=== PATIENT | male | born 1990 | race Caucasian/White ===

== ENCOUNTER 2017-12-26 19:20 | Emergency (ER) | payer SELFPAY | END 2017-12-26 20:32 | disposition home or self-care (01) | LOC: EDH 19:20 | DX: S67.21XA Crushing injury of right hand, initial encounter (principal); W23.0XXA Caught, crushed, jammed, or pinched between moving objects, initial encounter; Y93.89 Activity, other specified; Y92.89 Other specified places as the place of occurrence of the external cause; Y99.8 Other external cause status | CPT/HCPCS: 73130 ==

== ENCOUNTER 2018-02-15 15:36 | Emergency (ER) | payer SELFPAY ==
[2018-02-15] MEDS ORDERED: ACETAMINOPHEN-CODEINE 300/30MG TAB ONE (16:32)
== END 2018-02-15 16:45 | disposition home or self-care (01) ==
LOC: EDH 15:36
DX: S40.011A Contusion of right shoulder, initial encounter (principal); W01.0XXA Fall on same level from slipping, tripping and stumbling without subsequent striking against object, initial encounter; Y93.01 Activity, walking, marching and hiking; Y92.410 Unspecified street and highway as the place of occurrence of the external cause; Y99.8 Other external cause status
CPT/HCPCS: 73030

== ENCOUNTER 2019-03-22 19:34 | Emergency (ER) | payer OTHER ==
[2019-03-22] MEDS ORDERED: DEXAMETHASONE SOD PHOSPHATE 10MG/ML 1ML VIAL ONE (20:11)
[2019-03-22] MEDS ORDERED: KETOROLAC TROMETHAMINE 60 MG/2 ML VIAL ONE (20:12)
== END 2019-03-22 20:27 | disposition home or self-care (01) ==
LOC: EDH 19:34
DX: S46.812A Strain of other muscles, fascia and tendons at shoulder and upper arm level, left arm, initial encounter (principal); X50.0XXA Overexertion from strenuous movement or load, initial encounter; Y93.89 Activity, other specified; Y92.89 Other specified places as the place of occurrence of the external cause; Y99.8 Other external cause status
CPT/HCPCS: 73030; 96372 ×2; 99284; J1100; J1885

== ENCOUNTER 2019-08-25 23:04 | Emergency (ER) | payer SELFPAY | END 2019-08-26 00:48 | disposition home or self-care (01) | LOC: EDH 23:04 | DX: S63.501A Unspecified sprain of right wrist, initial encounter (principal); G62.9 Polyneuropathy, unspecified; Z72.0 Tobacco use; W22.01XA Walked into wall, initial encounter; Y93.89 Activity, other specified; Y92.89 Other specified places as the place of occurrence of the external cause; Y99.8 Other external cause status | CPT/HCPCS: 29125; 73110 ==

== ENCOUNTER 2021-04-01 09:53 | Emergency (ER) | payer SELFPAY ==
[~2021-04-01] VITALS: Ht 188 cm; Wt 99.8 kg
[2021-04-01 10:19] LABS: BASOPHILS % (AUTO) 0.4 % (0.0-5.0); EOSINOPHILS % (AUTO) 1.4 % (0.0-8.0); HEMATOCRIT 51.9 % (42-54); LYMPHOCYTES % (AUTO) 17.7 % (21.0-51.0); MEAN CORPUSCULAR HEMOGLOBIN 31.5 pg (27.0-33.0); MEAN CORPUSCULAR HGB CONC 34.7 g/dL (32.0-36.0); MEAN CORPUSCULAR VOLUME 90.9 fL (79-99); MONOCYTES % (AUTO) 6.4 % (3.0-13.0); NEUTROPHILS % (AUTO) 73.8 % (40.0-77.0); PLATELET COUNT (AUTO) 265 K/uL (130-400); RED BLOOD CELL COUNT(AUTO) 5.71 MIL/uL (4.50-6.20); RED CELL DISTRIBUTION WIDTH 13.6 % (11.0-15.5); WHITE BLOOD COUNT (AUTO) 11.6 K/uL (4.8-10.8)
[2021-04-01] MEDS ORDERED: ZIPRASIDONE MESYLATE 20 MG/VIAL IM SCH ×2 (10:23→17:00)
[2021-04-01 10:31] LABS: APPEARANCE,URINE Clear (CLEAR); BILIRUBIN,URINE Negative (NEGATIVE); COLOR,URINE Yellow (YELLOW); GLUCOSE, URINE (UA) Negative (NEGATIVE); KETONES,URINE Negative (NEGATIVE); LEUKOCYTE ESTERASE ,URINE Trace (NEGATIVE); NITRATE,URINE Negative (NEGATIVE); OCCULT BLOOD,URINE Negative (NEGATIVE); PH,URINE 7.5 (5.0-8.0); PROTEIN,URINE Negative (NEGATIVE)
[2021-04-01 10:34] LABS: CARBON DIOXIDE 27 mmol/L (21-32); CHLORIDE 104 mmol/L (101-111); CREATININE 0.8 mg/dL (0.5-1.5); GLOMERULAR FILTR. RATE CALC 121 mL/min (>60); GLUCOSE,RANDOM 94 mg/dL (70-105); POTASSIUM 3.9 mmol/L (3.5-5.1); SODIUM SERUM 141 mmol/L (136-145); UREA NITROGEN, BLOOD 13 mg/dL (7-18)
[2021-04-01 10:38] LABS: AMPHET/METH SCREEN,URINE POSITIVE (NEGATIVE); BARBITURATE SCREEN, URINE NEGATIVE (NEGATIVE); BENZODIAZEPINES SCREEN,URINE NEGATIVE (NEGATIVE); CANNABINOID SCREEN,URINE POSITIVE (NEGATIVE); COCAINE SCREEN,URINE NEGATIVE (NEGATIVE); OPIATE SCREEN,URINE NEGATIVE (NEGATIVE); PHENCYCLIDINE SCREEN,URINE NEGATIVE (NEGATIVE)
[2021-04-01 10:39] LABS: ALANINE AMINOTRANSFERASE 33 U/L (12-78); ALCOHOL, BLOOD < 3 mg/dL (0-10); ASPARTATE AMINOTRANSFERASE 15 U/L (10-37); BILIRUBIN,TOTAL 0.7 mg/dL (0.2-1.0); CREATINE KINASE, TOTAL 134 U/L (21-232); TOTAL PROTEIN, SERUM 7.2 g/dL (6.0-8.3)
[2021-04-01 10:54] LABS: BACTERIA,URINE Few /HPF (None Seen); RBC,URINE None Seen /HPF (0-1); SQUAMOUS EPITHELIAL CELL,UR 0-2 /HPF (0-2)
[2021-04-01 10:56] LABS: WBC,URINE 0-1 /HPF (0-1)
[2021-04-01 11:06] LABS: ACETAMINOPHEN < 1 mcg/mL (10-29); SALICYLATE 4.3 mg/dL (2.8-20.0)
[2021-04-01 13:02] VITALS: BP 142/89
[2021-04-01] MEDS ORDERED: HYDROXYZINE 25 MG TABLET ONE (13:57)
== END 2021-04-01 17:39 | disposition home or self-care (01) ==
LOC: EDH 09:53
DX: F25.9 Schizoaffective disorder, unspecified (principal); Z20.822 Contact with and (suspected) exposure to COVID-19
CPT/HCPCS: 36415; 80053; 80305; 81001; 82550; 85025; 87635; 96372; 99284; C9803; G0481; J3486

== ENCOUNTER 2021-04-24 21:07 | Emergency (ER) | payer SELFPAY ==
[~2021-04-24] VITALS: Ht 188 cm; Wt 95.3 kg
[2021-04-24 21:11] VITALS: BP 145/92
[2021-04-24] MEDS ORDERED: NAPR-1180 PO (21:43)
[2021-04-24] MEDS: KETOROLAC 60 MG VIAL (30MG/ML) IM ONE (21:52)
== END 2021-04-24 21:54 | disposition home or self-care (01) ==
LOC: EDH 21:07
DX: S63.502A Unspecified sprain of left wrist, initial encounter (principal); Z79.1 Long term (current) use of non-steroidal anti-inflammatories (NSAID); V00.131A Fall from skateboard, initial encounter; Y93.51 Activity, roller skating (inline) and skateboarding; Y92.89 Other specified places as the place of occurrence of the external cause; Y99.8 Other external cause status
CPT/HCPCS: 73110; 96372; 99283; J1885